=== PATIENT | male | born 1965 | race African-American/Black ===

== ENCOUNTER 2022-08-07 14:15 | Inpatient (IN) | payer OTHER ==
[~2022-08-07] VITALS: Ht 177.8 cm; Wt 87.1 kg
[2022-08-07] VITALS: BP 144/85
[2022-08-07] MEDS ORDERED: ONDANSETRON HCL 4MG/2ML INJ IV STA (14:38)
[2022-08-07] MEDS ORDERED: MORPHINE SULFATE 4 MG/ML CPJ (NOT FOR IM USE) IV STA (14:38)
[2022-08-07] MEDS ORDERED: PANTOPRAZOLE SODIUM 40 MG/VIAL IV ONE (14:45)
[2022-08-07] MEDS ORDERED: SODIUM CHLORIDE 0.9% 1,000 ML IV ONE (14:45)
[2022-08-07] MEDS ORDERED: SODIUM CHLORIDE 0.9% 1000ML BAG (SEPSIS BOLUS) IV ONE (18:45)
[2022-08-07] MEDS ORDERED: VANCOMYCIN 1G PREMIX 200 ML IV ONE (18:45)
[2022-08-07] MEDS ORDERED: PIPERACILLIN/TAZ 3.375G PREMIX 50 ML IV ONE (18:45)
[2022-08-07 19:59] LABS: CHLORIDE 98 mEq/L (98-107)
[2022-08-07 20:02] LABS: BASOPHILS % 0.7 % (0.0-2.0); EOSINOPHILS % 1.1 % (0.0-5.0); HEMATOCRIT. 29.5 % (42.0-52.0); HEMOGLOBIN. 9.6 g/dL (14.0-18.0); LYMPHOCYTES % 12.2 % (20.0-50.0); MEAN CORPUSCULAR HEMOGLOBIN 27.3 pg (28.0-32.0); MEAN PLATELET VOLUME 7.6 fl (7.4-10.4); MONOCYTES % 13.1 % (2.0-8.0); NEUTROPHILS % 72.9 % (40.0-76.0); PLATELET 392 x1000/uL (130-400); RED BLOOD CELL COUNT 3.51 mill/uL (4.7-6.1); RED CELL DISTRIBUTION WIDTH 14.4 % (11.6-14.6)
[2022-08-07 20:03] LABS: INR 1.1; PARTIAL THROMBOPLASTIN TIME 33.2 sec (23.4-31.0); PROTHROMBIN TIME 11.7 sec (9.6-11.0)
[2022-08-08] MEDS ORDERED: LORAZEPAM 0.5MG TABLET PO PRN (02:00)
[2022-08-08] MEDS ORDERED: BISACODYL 5MG TABLET PO PRN (02:00)
[2022-08-08] MEDS ORDERED: DEXTROSE 50% WATER 50ML SYRINGE IV PRN (02:15)
[2022-08-08] MEDS ORDERED: HYDROCODONE/ACETAMINOPHEN 5/325MG TABLET PO PRN (02:15)
[2022-08-08] MEDS ORDERED: NALOXONE HCL 0.4MG/ML VIAL IV PRN (02:30)
[2022-08-08 04:00] VITALS: BP 128/72
[2022-08-08] MEDS ORDERED: ASCO500C18 PO (04:21)
[2022-08-08] MEDS ORDERED: LORA-249 PO (04:21)
[2022-08-08] MEDS ORDERED: ATOR-2 PO (04:21)
[2022-08-08] MEDS ORDERED: BISA10SU62 RC (04:21)
[2022-08-08] MEDS ORDERED: DAPT500V17 IV (04:21)
[2022-08-08] MEDS ORDERED: INSLIS SUBCUT (04:21)
[2022-08-08] MEDS ORDERED: CLOP75TA33 PO (04:21)
[2022-08-08] MEDS ORDERED: PANT40TA51 PO (04:21)
[2022-08-08] MEDS ORDERED: GABA-532 PO (04:21)
[2022-08-08] MEDS: GABAPENTIN 300MG CAPSULE PO SCH ×4 (05:19→21:32)
[2022-08-08] MEDS: BLOOD SUGAR DIAGNOSTIC STRIP TEST SCH ×4 (06:54→20:28)
[2022-08-08] MEDS: INSULIN LISPRO 100 UNITS/ML SUBCUT SCH ×4 (06:54→20:28)
[2022-08-08 08:00] VITALS: BP 118/70
[2022-08-08] MEDS: AMLODIPINE 10MG TABLET PO SCH (08:30)
[2022-08-08] MEDS: ASPIRIN 81MG TABLET PO SCH (08:30)
[2022-08-08] MEDS: PANTOPRAZOLE 40MG DR TABLET PO SCH ×2 (08:31→17:35)
[2022-08-08] MEDS: CLOPIDOGREL 75MG TABLET PO SCH (08:31)
[2022-08-08] MEDS ORDERED: DAPTOMYCIN 500 MG in SODIUM CHLORIDE 0.9% 50 ML IV SCH (09:00)
[2022-08-08 12:00] VITALS: BP 121/68
[2022-08-08] MEDS ORDERED: POTASSIUM CHLORIDE 20MEQ TABLET SR PO SCH (14:00)
[2022-08-08] MEDS: ONDANSETRON HCL 4MG/2ML INJ IV PRN (14:07)
[2022-08-08 16:00] VITALS: BP 116/58
[2022-08-08 16:41] LABS: BASOPHILS % 0.7 % (0.0-2.0); EOSINOPHILS % 1.1 % (0.0-5.0); HEMOGLOBIN. 9.7 g/dL (14.0-18.0); LYMPHOCYTES % 9.2 % (20.0-50.0); MEAN CORPUSCULAR HEMOGLOBIN 27.5 pg (28.0-32.0); MEAN CORPUSCULAR VOLUME 82.3 fL (80.0-94.0); MEAN PLATELET VOLUME 7.7 fl (7.4-10.4); MONOCYTES % 12.7 % (2.0-8.0); NEUTROPHILS % 76.3 % (40.0-76.0); PLATELET 405 x1000/uL (130-400); RED BLOOD CELL COUNT 3.52 mill/uL (4.7-6.1); RED CELL DISTRIBUTION WIDTH 14.6 % (11.6-14.6)
[2022-08-08 17:06] LABS: CHLORIDE 99 mEq/L (98-107)
[2022-08-08] MEDS: PIPERACILLIN/TAZOBACTAM 3.375 G in DEXTROSE 5% WATER 50 ML IV SCH ×2 (17:35→21:28)
[2022-08-08 20:00] VITALS: BP 111/61
[2022-08-08 20:00] LABS: CLARITY URINE CLEAR (CLEAR); COLOR URINE DARK YELLOW (YELLOW); KETONES URINE 3+ (NEGATIVE); LEUKOCYTE ESTERASE URINE TRACE (NEGATIVE); NITRITE URINE NEGATIVE (NEGATIVE); OCCULT BLOOD URINE NEGATIVE (NEGATIVE); PH URINE 5.5 (4.5-8.0); PROTEIN URINE 1+ (NEGATIVE); SPECIFIC GRAVITY URINE 1.023 (1.005-1.030)
[2022-08-08] MEDS: ATORVASTATIN CALCIUM 40MG TABLET PO SCH ×2 (21:00→21:27)
[2022-08-09] VITALS: BP_SYST 121; BP_SYST 126; BP_DIAS 70; BP_DIAS 75
[2022-08-09 03:58] VITALS: BP 141/77
[2022-08-09] MEDS: GABAPENTIN 300MG CAPSULE PO SCH ×3 (06:00→21:15)
[2022-08-09] MEDS: PIPERACILLIN/TAZOBACTAM 3.375 G in DEXTROSE 5% WATER 50 ML IV SCH ×3 (06:09→21:15)
[2022-08-09] MEDS: INSULIN LISPRO 100 UNITS/ML SUBCUT SCH ×4 (06:19→21:20)
[2022-08-09] MEDS: BLOOD SUGAR DIAGNOSTIC STRIP TEST SCH ×4 (06:19→20:06)
[2022-08-09 08:00] VITALS: BP 102/62
[2022-08-09] MEDS: CLOPIDOGREL 75MG TABLET PO SCH (09:00)
[2022-08-09] MEDS: PANTOPRAZOLE 40MG DR TABLET PO SCH ×2 (09:00→17:00)
[2022-08-09] MEDS: AMLODIPINE 10MG TABLET PO SCH (09:00)
[2022-08-09] MEDS: ASPIRIN 81MG TABLET PO SCH (09:00)
[2022-08-09] MEDS: DAPTOMYCIN 500 MG in SODIUM CHLORIDE 0.9% 50 ML IV SCH (09:57)
[2022-08-09 12:00] VITALS: BP 140/66
[2022-08-09] MEDS: SODIUM CHLORIDE 0.9% 1,000 ML IV SCH (12:59)
[2022-08-09 13:05] LABS: HEMOGLOBIN. 10.1 g/dL (14.0-18.0); MEAN CORPUSCULAR HEMOGLOBIN 27.6 pg (28.0-32.0); MEAN CORPUSCULAR VOLUME 81.9 fL (80.0-94.0); MEAN PLATELET VOLUME 7.7 fl (7.4-10.4); PLATELET 450 x1000/uL (130-400); RED BLOOD CELL COUNT 3.66 mill/uL (4.7-6.1); RED CELL DISTRIBUTION WIDTH 15.1 % (11.6-14.6)
[2022-08-09 13:13] LABS: CHLORIDE 97 mEq/L (98-107)
[2022-08-09 13:17] LABS: TOTAL IRON BINDING CAPACITY 158 ug/dL (250-450)
[2022-08-09 14:00] LABS: FERRITIN 2101 ng/mL (22-322)
[2022-08-09 15:23] LABS: PLATELET ESTIMATE INCREASED
[2022-08-09 16:15] VITALS: BP 138/68
[2022-08-09 20:00] VITALS: BP 127/65
[2022-08-09] MEDS: ATORVASTATIN CALCIUM 40MG TABLET PO SCH (21:00)
[2022-08-09] MEDS ORDERED: ACETAMINOPHEN 650MG SUPP PR PRN (22:15)
[2022-08-09] MEDS ORDERED: ACETAMINOPHEN 120MG SUPP PR PRN (23:30)
[2022-08-10] VITALS: BP 122/67
[2022-08-10 04:00] VITALS: BP 116/68
[2022-08-10] MEDS: GABAPENTIN 300MG CAPSULE PO SCH ×3 (05:55→23:31)
[2022-08-10] MEDS: BLOOD SUGAR DIAGNOSTIC STRIP TEST SCH ×4 (06:15→21:00)
[2022-08-10] MEDS: PIPERACILLIN/TAZOBACTAM 3.375 G in DEXTROSE 5% WATER 50 ML IV SCH ×3 (06:15→23:32)
[2022-08-10] MEDS: INSULIN LISPRO 100 UNITS/ML SUBCUT SCH ×4 (06:15→21:00)
[2022-08-10 07:56] VITALS: BP 123/72
[2022-08-10] MEDS: DAPTOMYCIN 500 MG in SODIUM CHLORIDE 0.9% 50 ML IV SCH (09:32)
[2022-08-10] MEDS: ASPIRIN 81MG TABLET PO SCH (10:20)
[2022-08-10] MEDS: CLOPIDOGREL 75MG TABLET PO SCH (10:21)
[2022-08-10] MEDS: AMLODIPINE 10MG TABLET PO SCH (10:21)
[2022-08-10] MEDS: PANTOPRAZOLE 40MG DR TABLET PO SCH ×2 (10:21→18:15)
[2022-08-10] MEDS ORDERED: ACETAMINOPHEN 325MG TABLET PO PRN (11:15)
[2022-08-10] MEDS ORDERED: DILTIAZEM HCL 5MG/ML 5ML VIAL IV NR (11:15)
[2022-08-10 12:00] VITALS: BP 133/67
[2022-08-10] MEDS: ONDANSETRON HCL 4MG/2ML INJ IV PRN ×2 (12:21→20:15)
[2022-08-10] MEDS: SODIUM CHLORIDE 0.9% 1,000 ML IV SCH ×2 (15:15)
[2022-08-10 15:40] LABS: HEMATOCRIT. 28.7 % (42.0-52.0); HEMOGLOBIN. 9.3 g/dL (14.0-18.0); MEAN CORPUSCULAR HEMOGLOBIN 26.3 pg (28.0-32.0); MEAN CORPUSCULAR VOLUME 81.5 fL (80.0-94.0); MEAN PLATELET VOLUME 7.5 fl (7.4-10.4); PLATELET 389 x1000/uL (130-400); RED BLOOD CELL COUNT 3.52 mill/uL (4.7-6.1)
[2022-08-10 15:59] LABS: CHLORIDE 100 mEq/L (98-107)
[2022-08-10 16:00] VITALS: BP 116/64
[2022-08-10 16:41] LABS: PLATELET ESTIMATE NORMAL
[2022-08-10] MEDS: DILTIAZEM HCL 30MG TABLET PO SCH ×2 (18:00→18:16)
[2022-08-10] MEDS ORDERED: POTASSIUM CHLORIDE 20MEQ TABLET SR PO SCH (19:00)
[2022-08-10] MEDS ORDERED: CLONIDINE 0.1MG TABLET PO PRN (23:00)
[2022-08-10] MEDS: ATORVASTATIN CALCIUM 40MG TABLET PO SCH (23:32)
[2022-08-11 04:00] VITALS: BP 125/75
[2022-08-11] MEDS: SODIUM CHLORIDE 0.9% 1,000 ML IV SCH ×2 (04:02→16:50)
[2022-08-11 05:51] LABS: VITAMIN B12 SERUM 662 pg/mL (211-911)
[2022-08-11] MEDS: BLOOD SUGAR DIAGNOSTIC STRIP TEST SCH ×4 (05:59→20:15)
[2022-08-11] MEDS: DILTIAZEM HCL 30MG TABLET PO SCH ×5 (06:00→23:47)
[2022-08-11] MEDS: PIPERACILLIN/TAZOBACTAM 3.375 G in DEXTROSE 5% WATER 50 ML IV SCH ×3 (06:44→20:54)
[2022-08-11] MEDS: GABAPENTIN 300MG CAPSULE PO SCH ×3 (06:45→21:07)
[2022-08-11] MEDS: INSULIN LISPRO 100 UNITS/ML SUBCUT SCH ×4 (06:51→20:47)
[2022-08-11 07:07] LABS: HEMATOCRIT. 27.9 % (42.0-52.0); HEMOGLOBIN. 9.1 g/dL (14.0-18.0); MEAN CORPUSCULAR HEMOGLOBIN 26.6 pg (28.0-32.0); MEAN CORPUSCULAR VOLUME 81.5 fL (80.0-94.0); MEAN PLATELET VOLUME 7.8 fl (7.4-10.4); PLATELET 348 x1000/uL (130-400); RED BLOOD CELL COUNT 3.42 mill/uL (4.7-6.1); RED CELL DISTRIBUTION WIDTH 15.2 % (11.6-14.6)
[2022-08-11 08:00] VITALS: BP 120/75
[2022-08-11] MEDS: ASPIRIN 81MG TABLET PO SCH (09:23)
[2022-08-11] MEDS: CLOPIDOGREL 75MG TABLET PO SCH (09:23)
[2022-08-11] MEDS: PANTOPRAZOLE 40MG DR TABLET PO SCH ×2 (09:23→17:55)
[2022-08-11] MEDS: DAPTOMYCIN 500 MG in SODIUM CHLORIDE 0.9% 50 ML IV SCH (09:28)
[2022-08-11 10:16] LABS: CHLORIDE 102 mEq/L (98-107)
[2022-08-11 11:15] LABS: PLATELET ESTIMATE NORMAL
[2022-08-11 12:00] VITALS: BP 101/68
[2022-08-11 16:00] VITALS: BP 103/56
[2022-08-11 20:00] VITALS: BP 116/69
[2022-08-11] MEDS: ATORVASTATIN CALCIUM 40MG TABLET PO SCH (20:46)
[2022-08-11] MEDS: ONDANSETRON HCL 4MG/2ML INJ IV PRN (20:46)
[2022-08-11 23:49] VITALS: BP 102/58
[2022-08-12 04:00] VITALS: BP 114/73
[2022-08-12] MEDS: PIPERACILLIN/TAZOBACTAM 3.375 G in DEXTROSE 5% WATER 50 ML IV SCH ×3 (05:24→20:31)
[2022-08-12] MEDS: GABAPENTIN 300MG CAPSULE PO SCH ×3 (05:24→20:31)
[2022-08-12] MEDS: DILTIAZEM HCL 30MG TABLET PO SCH ×4 (05:34→23:51)
[2022-08-12] MEDS: ONDANSETRON HCL 4MG/2ML INJ IV PRN (05:44)
[2022-08-12] MEDS: SODIUM CHLORIDE 0.9% 1,000 ML IV SCH ×2 (05:49→18:53)
[2022-08-12] MEDS: INSULIN LISPRO 100 UNITS/ML SUBCUT SCH ×4 (06:00→20:31)
[2022-08-12] MEDS: BLOOD SUGAR DIAGNOSTIC STRIP TEST SCH ×4 (06:00→20:31)
[2022-08-12 06:11] LABS: CHLORIDE 105 mEq/L (98-107)
[2022-08-12 06:44] LABS: HEMATOCRIT. 26.8 % (42.0-52.0); HEMOGLOBIN. 8.7 g/dL (14.0-18.0); MEAN CORPUSCULAR HEMOGLOBIN 26.3 pg (28.0-32.0); MEAN CORPUSCULAR VOLUME 81.3 fL (80.0-94.0); PLATELET 310 x1000/uL (130-400); RED BLOOD CELL COUNT 3.29 mill/uL (4.7-6.1); RED CELL DISTRIBUTION WIDTH 15.4 % (11.6-14.6)
[2022-08-12 08:00] VITALS: BP 119/80
[2022-08-12] MEDS: DAPTOMYCIN 500 MG in SODIUM CHLORIDE 0.9% 50 ML IV SCH (11:34)
[2022-08-12] MEDS: KCL 10MEQ/50ML PREMIX 50 ML IV NR ×3 (11:34→18:55)
[2022-08-12] MEDS: PANTOPRAZOLE 40MG DR TABLET PO SCH ×2 (11:40→18:52)
[2022-08-12] MEDS: CLOPIDOGREL 75MG TABLET PO SCH (11:40)
[2022-08-12] MEDS: ASPIRIN 81MG TABLET PO SCH (11:40)
[2022-08-12 12:00] VITALS: BP 115/75
[2022-08-12] MEDS ORDERED: POTASSIUM CHLORIDE 20MEQ TABLET SR PO NR (12:30)
[2022-08-12 13:03] LABS: PLATELET ESTIMATE NORMAL
[2022-08-12 15:36] VITALS: BP 124/82
[2022-08-12 20:00] VITALS: BP 112/77
[2022-08-12] MEDS: ATORVASTATIN CALCIUM 40MG TABLET PO SCH (20:31)
[2022-08-13] VITALS (7 sets, daily range): BP systolic 113–139; BP diastolic 69–82
[2022-08-13] MEDS: INSULIN LISPRO 100 UNITS/ML SUBCUT SCH ×4 (06:17→21:00)
[2022-08-13] MEDS: BLOOD SUGAR DIAGNOSTIC STRIP TEST SCH ×4 (06:17→21:00)
[2022-08-13] MEDS: PIPERACILLIN/TAZOBACTAM 3.375 G in DEXTROSE 5% WATER 50 ML IV SCH ×3 (06:18→20:59)
[2022-08-13] MEDS: DILTIAZEM HCL 30MG TABLET PO SCH ×4 (06:18→23:44)
[2022-08-13] MEDS: GABAPENTIN 300MG CAPSULE PO SCH ×3 (06:18→22:33)
[2022-08-13 08:15] LABS: HEMATOCRIT. 27.1 % (42.0-52.0); HEMOGLOBIN. 8.7 g/dL (14.0-18.0); MEAN CORPUSCULAR HEMOGLOBIN 26.3 pg (28.0-32.0); MEAN CORPUSCULAR VOLUME 81.8 fL (80.0-94.0); MEAN PLATELET VOLUME 8.1 fl (7.4-10.4); PLATELET 325 x1000/uL (130-400); RED BLOOD CELL COUNT 3.31 mill/uL (4.7-6.1); RED CELL DISTRIBUTION WIDTH 15.7 % (11.6-14.6)
[2022-08-13] MEDS: ASPIRIN 81MG TABLET PO SCH (08:24)
[2022-08-13] MEDS: SODIUM CHLORIDE 0.9% 1,000 ML IV SCH (08:24)
[2022-08-13] MEDS: CLOPIDOGREL 75MG TABLET PO SCH (08:24)
[2022-08-13] MEDS: PANTOPRAZOLE 40MG DR TABLET PO SCH ×2 (08:24→17:00)
[2022-08-13 08:51] LABS: CHLORIDE 109 mEq/L (98-107)
[2022-08-13] MEDS ORDERED: POTASSIUM CHLORIDE 20MEQ/PACKET PO NR (10:00)
[2022-08-13 10:42] LABS: PLATELET ESTIMATE NORMAL
[2022-08-13] MEDS: DAPTOMYCIN 500 MG in SODIUM CHLORIDE 0.9% 50 ML IV SCH (11:19)
[2022-08-13] MEDS: ATORVASTATIN CALCIUM 40MG TABLET PO SCH (20:59)
[2022-08-14] VITALS: BP 130/80
[2022-08-14 04:00] VITALS: BP 160/80
[2022-08-14] MEDS: GABAPENTIN 300MG CAPSULE PO SCH ×2 (05:52→14:00)
[2022-08-14] MEDS: DILTIAZEM HCL 30MG TABLET PO SCH ×3 (05:52→17:25)
[2022-08-14] MEDS: PIPERACILLIN/TAZOBACTAM 3.375 G in DEXTROSE 5% WATER 50 ML IV SCH ×2 (05:52→13:53)
[2022-08-14] MEDS: BLOOD SUGAR DIAGNOSTIC STRIP TEST SCH ×3 (07:10→17:18)
[2022-08-14 07:33] LABS: HEMATOCRIT. 28.3 % (42.0-52.0); HEMOGLOBIN. 9.3 g/dL (14.0-18.0); MEAN CORPUSCULAR HEMOGLOBIN 26.4 pg (28.0-32.0); MEAN CORPUSCULAR VOLUME 80.5 fL (80.0-94.0); MEAN PLATELET VOLUME 7.9 fl (7.4-10.4); PLATELET 391 x1000/uL (130-400); RED BLOOD CELL COUNT 3.51 mill/uL (4.7-6.1); RED CELL DISTRIBUTION WIDTH 15.6 % (11.6-14.6)
[2022-08-14] MEDS: INSULIN LISPRO 100 UNITS/ML SUBCUT SCH ×3 (07:40→17:19)
[2022-08-14 08:00] VITALS: BP 141/85
[2022-08-14 08:00] LABS: CHLORIDE 107 mEq/L (98-107)
[2022-08-14 09:18] LABS: PLATELET ESTIMATE NORMAL
[2022-08-14] MEDS: CLOPIDOGREL 75MG TABLET PO SCH (11:25)
[2022-08-14] MEDS: ASPIRIN 81MG TABLET PO SCH (11:25)
[2022-08-14] MEDS: PANTOPRAZOLE 40MG DR TABLET PO SCH ×2 (11:25→17:00)
[2022-08-14] MEDS: DAPTOMYCIN 500 MG in SODIUM CHLORIDE 0.9% 50 ML IV SCH (11:26)
[2022-08-14] MEDS: SODIUM CHLORIDE 0.9% 1,000 ML IV SCH (11:30)
[2022-08-14 12:00] VITALS: BP 130/80
[2022-08-14] MEDS ORDERED: POTASSIUM CHLORIDE 20MEQ TABLET SR PO SCH (13:00)
[2022-08-14 16:00] VITALS: BP 125/75
== END 2022-08-14 19:24 | DRG 720 ==
LOC: ER 14:15 → 8WST 19:06 → EDBEDREQ 19:08 → EDBEDREQTM 19:08 → ENRESERV 20:11
PROVIDERS: ADMIT Internal Medicine; ATTEND Internal Medicine
DX: A41.9 Sepsis, unspecified organism (principal); K22.6 Gastro-esophageal laceration-hemorrhage syndrome; E43 Unspecified severe protein-calorie malnutrition; J18.9 Pneumonia, unspecified organism; I38 Endocarditis, valve unspecified; E87.1 Hypo-osmolality and hyponatremia; I69.351 Hemiplegia and hemiparesis following cerebral infarction affecting right dominant side; Z20.822 Contact with and (suspected) exposure to COVID-19; N40.0 Benign prostatic hyperplasia without lower urinary tract symptoms; E78.5 Hyperlipidemia, unspecified; R91.8 Other nonspecific abnormal finding of lung field; N39.0 Urinary tract infection, site not specified; E87.6 Hypokalemia; K92.0 Hematemesis; E11.9 Type 2 diabetes mellitus without complications; I10 Essential (primary) hypertension; D64.9 Anemia, unspecified; Z68.27 Body mass index [BMI] 27.0-27.9, adult; Z79.82 Long term (current) use of aspirin; Z79.899 Other long term (current) drug therapy
CPT/HCPCS: 36415; 71045; 74176; 80048; 80053; 81003; 82607; 82728; 82746; 82962; 83036; 83540; 83550; 83605; 83880; 84145; 84484; 85025; 85044; 86850; 86900; 87426; 92610; 93005; 97110; 97162; 97166; 97530; 97535; 99285; C9113; J0878; J1815; J2270; J2405; J2543; J3480; J3490; J7030; J7060